=== PATIENT | female | born 1990 | race Caucasian/White ===

== ENCOUNTER 2016-10-08 21:00 | Emergency (ER) | payer OTHER ==
[~2016-10-08] VITALS: Ht 154.9 cm; Wt 85.3 kg
[~2016-10-08 21:00] MED LIST: AMOXICILLIN500 M2 PO; BACTRIM DS 8001 TA1 PO; CEFADROXIL500 M1 PO; CEPHALEXIN500 M1 PO; CIPROFLOXACIN500 MG PO; FLEXERIL5 MG PO; FLONASE ALLERG9.9 ML NAS; LOMOTIL 0.025 M1 TA1 PO; MACROBID100 M1 PO; MEDROL DOSEPAK4 MG PO; NKHM; PEPCID20 MG PO; PYRIDIUM200 M1 PO; PYRIDIUM200 MG PO; SILVADENE1% TP; TRAMADOL HCL50 MG PO; TRIMOX500 MG PO; VIBRA-TAB100 MG PO; VICODIN 500 MG-1 TAB PO; ZOFRAN ODT4 MG SL; Zofran4 MG PO
[2016-10-08 21:05] VITALS: BP 125/72
[2016-10-08 21:21] LABS: BILIRUBIN NEGATIVE (NEGATIVE); BLOOD 2+ (NEGATIVE); CLARITY SL CLOUDY (CLEAR); COLOR YELLOW (YELLOW); GLUCOSE NEGATIVE (NEGATIVE); KETONE TRACE (NEGATIVE); LEUKO ESTERASE 1+ (NEGATIVE); NITRITE POSITIVE (NEGATIVE); SPECIFIC GRAVITY 1.015 (1.005-1.030)
[2016-10-08 21:33] LABS: BACTERIA 2+
[2016-10-08 21:34] LABS: WBC 41-50 wbc/hpf (0-5)
[2016-10-08 21:53] LABS: BASO % 0.2 % (0.0-1.0); EOS % 0.1 % (1.0-4.0); HEMATOCRIT 38.2 % (37.0-47.0); HEMOGLOBIN 13.1 g/dl (12.0-16.0); LYMPH # 1.6 10*3/uL (1.3-4.4); LYMPH % 12.5 % (27.0-41.0); MEAN CELL VOLUME 93.6 fl (81.0-99.0); MEAN CORPUSCULAR HGB 32.1 pg (27.0-31.0); MEAN CORPUSCULAR HGB CONC 34.3 g/dl (33.0-37.0); MEAN PLATELET VOLUME 10.3 fl (9.6-12.3); MONO # 0.8 10*3/uL (0.1-1.0); MONO % 6.4 % (3.0-9.0); NEUT # 10.2 10*3/uL (2.3-7.9); NEUT % 80.5 % (47.0-73.0); PLATELET COUNT AUTOMATED 270 10*3/uL (130-400); RED BLOOD COUNT 4.08 10*6/uL (4.10-5.10); RED CELL DISTRI WIDTH 12.3 % (0-14.5); WHITE BLOOD COUNT 12.7 10*3/uL (4.8-10.8)
[2016-10-08 22:06] LABS: BUN 9 mg/dl (7-24); CHLORIDE 105 mmol/L (98-107); CREATININE 0.86 mg/dL (0.55-1.02); POTASSIUM 3.6 mmol/L (3.5-5.1); SODIUM 137 mmol/L (136-145)
[2016-10-08] MEDS ORDERED: AMINOPHYLLIN200 MG PO (22:11)
[2016-10-08] MEDS ORDERED: DIFLUCAN150 MG PO (22:11)
== END 2016-10-08 22:16 | disposition home or self-care (01) ==
LOC: ED 21:00
PROVIDERS: Emergency Medicine Emergency Medical Services
DX: N39.0 Urinary tract infection, site not specified (principal); R31.9 Hematuria, unspecified; Z88.6 Allergy status to analgesic agent

== ENCOUNTER 2016-11-05 08:10 | Emergency (ER) | payer OTHER ==
[~2016-11-05] VITALS: Wt 81.6 kg
[~2016-11-05 08:10] MED LIST changes: +AMINOPHYLLIN200 MG PO; +DIFLUCAN150 MG PO
[2016-11-05 08:15] VITALS: BP 101/42
[2016-11-05] MEDS ORDERED: CLARITIN10 MG PO (08:34)
[2016-11-05] MEDS ORDERED: NIX CREME RINSE60 ML T (08:34)
== END 2016-11-05 08:39 | disposition home or self-care (01) ==
LOC: ED 08:10
DX: L29.9 Pruritus, unspecified (principal); F17.200 Nicotine dependence, unspecified, uncomplicated; Z98.890 Other specified postprocedural states; Z88.5 Allergy status to narcotic agent

== ENCOUNTER 2016-11-19 17:09 | Emergency (ER) | payer OTHER ==
[~2016-11-19] VITALS: Wt 85.3 kg
[~2016-11-19 17:09] MED LIST changes: +CLARITIN10 MG PO; +NIX CREME RINSE60 ML T
[2016-11-19 17:23] VITALS: BP 104/64
[2016-11-19] MEDS ORDERED: MEDROL DOSEPAK4 MG PO (17:34)
[2016-11-19] MEDS ORDERED: CLARITIN10 MG PO (17:37)
== END 2016-11-19 19:38 | disposition home or self-care (01) ==
LOC: ED 17:09
DX: L23.9 Allergic contact dermatitis, unspecified cause (principal); F17.200 Nicotine dependence, unspecified, uncomplicated; Z88.6 Allergy status to analgesic agent

== ENCOUNTER 2017-04-08 10:47 | Emergency (ER) | payer OTHER ==
[~2017-04-08] VITALS: Ht 154.9 cm; Wt 83.9 kg
[2017-04-08 11:31] VITALS: BP 119/69
[2017-04-08] MEDS ORDERED: OMNICEF300 MG PO (11:52)
== END 2017-04-08 12:05 | disposition home or self-care (01) ==
LOC: ED 10:47
DX: H66.93 Otitis media, unspecified, bilateral (principal); F17.200 Nicotine dependence, unspecified, uncomplicated; Z88.5 Allergy status to narcotic agent

== ENCOUNTER 2017-06-18 16:57 | Emergency (ER) | payer OTHER ==
[~2017-06-18] VITALS: Wt 85.3 kg
[~2017-06-18 16:57] MED LIST changes: +OMNICEF300 MG PO
[2017-06-18 17:03] VITALS: BP 123/73
[2017-06-18 18:07] LABS: BASO % 0.3 % (0.0-1.0); EOS # 0.2 10*3/uL (0.0-0.4); EOS % 1.4 % (1.0-4.0); HEMATOCRIT 43.3 % (37.0-47.0); HEMOGLOBIN 14.8 g/dl (12.0-16.0); LYMPH # 1.5 10*3/uL (1.3-4.4); MEAN CELL VOLUME 94.5 fl (81.0-99.0); MEAN CORPUSCULAR HGB 32.3 pg (27.0-31.0); MEAN CORPUSCULAR HGB CONC 34.2 g/dl (33.0-37.0); MONO # 0.7 10*3/uL (0.1-1.0); MONO % 6.4 % (3.0-9.0); NEUT # 8.5 10*3/uL (2.3-7.9); NEUT % 77.6 % (47.0-73.0); PLATELET COUNT AUTOMATED 212 10*3/uL (130-400); RED BLOOD COUNT 4.58 10*6/uL (4.10-5.10); RED CELL DISTRI WIDTH 12.8 % (0-14.5)
[2017-06-18 18:11] LABS: BILIRUBIN 1+ (NEGATIVE); BLOOD TRACE-INTACT (NEGATIVE); CLARITY CLEAR (CLEAR); COLOR YELLOW (YELLOW); GLUCOSE NEGATIVE (NEGATIVE); KETONE NEGATIVE (NEGATIVE); LEUKO ESTERASE NEGATIVE (NEGATIVE); NITRITE NEGATIVE (NEGATIVE); PH 5.5 (5.0-9.0); SPECIFIC GRAVITY >= 1.030 (1.005-1.030); UROBILINOGEN 0.2 E.U./dl (0.2-1.0)
[2017-06-18 18:19] LABS: MUCOUS 1+
[2017-06-18 18:20] LABS: ALKALINE PHOSPHATASE 89 U/L (45-117); BUN 10 mg/dl (7-24); CHLORIDE 107 mmol/L (98-107); CREATININE 0.77 mg/dL (0.55-1.02); LIPASE 89 U/L (73-393); POTASSIUM 3.8 mmol/L (3.5-5.1); SGOT/AST 10 IU/L (3-35); SGPT/ALT 16 U/L (12-78); SODIUM 141 mmol/L (136-145); TOTAL PROTEIN 7.6 gm/dL (6.4-8.2)
== END 2017-06-18 19:18 | disposition home or self-care (01) ==
LOC: ED 16:57
PROVIDERS: Nurse Practitioner Family
DX: A08.4 Viral intestinal infection, unspecified (principal); Z98.890 Other specified postprocedural states; Z88.5 Allergy status to narcotic agent

== ENCOUNTER 2017-08-18 11:40 | Emergency (ER) | payer OTHER ==
[~2017-08-18] VITALS: Ht 154.9 cm; Wt 86.2 kg
[2017-08-18 11:42] VITALS: BP 127/72
[2017-08-18] MEDS ORDERED: FLOXIN10 ML OT (12:19)
== END 2017-08-18 12:29 | disposition home or self-care (01) ==
LOC: ED 11:40
DX: H60.93 Unspecified otitis externa, bilateral (principal); F17.200 Nicotine dependence, unspecified, uncomplicated; Z98.890 Other specified postprocedural states; Z88.5 Allergy status to narcotic agent

== ENCOUNTER 2018-02-10 14:46 | Emergency (ER) | payer SELFPAY ==
[~2018-02-10] VITALS: Wt 85.3 kg
[2018-02-10 14:46] VITALS: BP 120/87
[~2018-02-10 14:46] MED LIST changes: +AUGMENTIN 875875 MG PO; +CORTISPORIN SUS10 ML OT; +FLOXIN10 ML OT; +ZITHROMAX250 MG PO
[2018-02-10] MEDS ORDERED: CORTISPORIN SUS10 ML OT (15:00)
[2018-02-10] MEDS ORDERED: AMOXICILLIN500 M3 PO (15:00)
== END 2018-02-10 14:58 | disposition home or self-care (01) ==
LOC: ED 14:46
DX: H60.93 Unspecified otitis externa, bilateral (principal); R59.0 Localized enlarged lymph nodes; Z88.5 Allergy status to narcotic agent; Z79.2 Long term (current) use of antibiotics; Z79.899 Other long term (current) drug therapy

== ENCOUNTER 2023-02-15 08:44 | Emergency (ER) | payer SELFPAY ==
[~2023-02-15] VITALS: Ht 154.9 cm; Wt 86.2 kg
[~2023-02-15 08:44] MED LIST changes: +AMOXICILLIN500 M3 PO
[2023-02-15 10:13] VITALS: BP 143/72
[2023-02-15] MEDS ORDERED: AMOX-CLAV 875-1 EACH PO (10:27)
== END 2023-02-15 10:35 | disposition home or self-care (01) ==
LOC: ED 08:44
DX: H66.92 Otitis media, unspecified, left ear (principal); Z88.5 Allergy status to narcotic agent; Z98.890 Other specified postprocedural states; Z87.891 Personal history of nicotine dependence